=== PATIENT | male | born 1990 | race Two or more races ===

== ENCOUNTER 2017-07-18 11:48 | Emergency (ER) | payer OTHER ==
[~2017-07-18] VITALS: Ht 172.7 cm; Wt 59.9 kg
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
--- NOTE | 2017-07-18 12:28 | NUR ---
DAY LARRY AT BEDSIDE FOR EVAL.
[2017-07-18] MEDS ORDERED: IBUPROFEN 600 MG TABLET PO ONE ×2 (12:48→13:00)
[2017-07-18] MEDS ORDERED: TDAP [DIPH/PERTUSSIS/TET] 0.5 ML VIAL IM ONE ×2 (12:48→13:00)
--- NOTE | 2017-07-18 13:04 | NUR ---
MEDICATED. WOUND CARE PROVIDED. D/C IN STABLE CONDITION.
[2017-07-18 13:06] VITALS: BP 125/77
== END 2017-07-18 13:08 | disposition home or self-care (01) ==
LOC: ER 11:49
DX: S00.531A Contusion of lip, initial encounter (principal); S00.81XA Abrasion of other part of head, initial encounter; V19.40XA Pedal cycle driver injured in collision with unspecified motor vehicles in traffic accident, initial encounter; Y93.55 Activity, bike riding; Y92.89 Other specified places as the place of occurrence of the external cause; Y99.8 Other external cause status
CPT/HCPCS: 90471; 90715; 99283; A4606; A6402; Z7610